=== PATIENT | male | born 1945 | race Caucasian/White ===

== ENCOUNTER → 2024-03-04 12:59 | Outpatient (REF) | payer MEDICARE, SELFPAY | LOC: RCS 12:59 | PROVIDERS: ATTENDING PHYSICIAN Internal Medicine Cardiovascular Disease; FAMILY PHYSICIAN Family Medicine | DX: I35.1 Nonrheumatic aortic (valve) insufficiency (principal) | CPT/HCPCS: 93306 ==

== ENCOUNTER → 2024-09-06 11:18 | Outpatient (REF) | payer MEDICARE, SELFPAY | LOC: HWRCS 11:18 | PROVIDERS: ATTENDING PHYSICIAN Internal Medicine Cardiovascular Disease; FAMILY PHYSICIAN Family Medicine | DX: I35.1 Nonrheumatic aortic (valve) insufficiency (principal) | CPT/HCPCS: 93306 ==

== ENCOUNTER → 2025-03-16 09:19 | Outpatient (REF) | payer MEDICARE, SELFPAY | LOC: EEG 09:19 | PROVIDERS: ATTENDING PHYSICIAN Psychiatry & Neurology Neurology; FAMILY PHYSICIAN Family Medicine; OTHER PHYSICIAN Nurse Practitioner Adult Health | DX: R56.9 Unspecified convulsions (principal) | CPT/HCPCS: 95708 ==

== ENCOUNTER → 2025-03-17 08:00 | Outpatient (REF) | payer MEDICARE, SELFPAY | LOC: EEG 08:00 | PROVIDERS: ATTENDING PHYSICIAN Psychiatry & Neurology Neurology; FAMILY PHYSICIAN Family Medicine | DX: R56.9 Unspecified convulsions (principal) | CPT/HCPCS: 95708 ==

== ENCOUNTER → 2025-03-28 14:51 | Outpatient (REF) | payer MEDICARE, SELFPAY | LOC: RCS 14:51 | PROVIDERS: ATTENDING PHYSICIAN Internal Medicine Cardiovascular Disease; FAMILY PHYSICIAN Family Medicine | DX: I35.1 Nonrheumatic aortic (valve) insufficiency (principal) | CPT/HCPCS: 93306 ==

== ENCOUNTER → 2025-05-04 13:24 | Outpatient (REF) | payer MEDICARE, SELFPAY | LOC: RAD 13:24 | PROVIDERS: ATTENDING PHYSICIAN Internal Medicine Cardiovascular Disease | DX: R60.0 Localized edema (principal) | CPT/HCPCS: 93971 ==

== ENCOUNTER → 2025-05-12 15:07 | Outpatient (REF) | payer MEDICARE, SELFPAY | LOC: PAVMRI 15:07 | PROVIDERS: ATTENDING PHYSICIAN Psychiatry & Neurology Neurology; FAMILY PHYSICIAN Family Medicine | DX: R56.9 Unspecified convulsions (principal) | CPT/HCPCS: 70551 ==